=== PATIENT | female | born 1980 | race Caucasian/White ===

== ENCOUNTER 2020-07-23 12:53 | Emergency (ER) | payer MEDICAID, SELFPAY ==
[2020-07-23] VITALS (8 sets, daily range): BP systolic 96–127; BP diastolic 64–90; PULSE 59–86; RESP 14–16; TEMP 36.7; O2SAT 96–100; BMI 35.4
--- NOTE | 2020-07-23 13:25 | CT_ITS ---
STUDY: CT BRAIN WITHOUT CONTRAST REASON FOR EXAM: Female, 40 years old. ACUTE PSYCHOSIS, + ETOH, HX-HLD RADIATION DOSAGE (If Supplied By Facility): CTDIvol = ( 44.99 ) mGy, DLP = ( 796.11 ) mGycm TECHNIQUE: Transaxial CT imaging of the brain was performed without administration of intravenous contrast material. Individualized dose optimization techniques were used for this CT. COMPARISON: No relevant priors. FINDINGS: Normal soft tissue structures. Normal calvarium. Normal size ventricles and extra-axial spaces for the patient''s age. Normal white matter tracts of the cerebral hemispheres. Normal basal ganglia and thalami. Normal brainstem. Normal cerebellum. There is no intracranial hemorrhage. There are no findings of an acute ischemic infarction. Normal visualized paranasal sinuses. CT/Brain/Head without Contrast IMPRESSION: Normal unenhanced CT scan of the brain. Electronically Signed: Panchito Rush, at 14:57 EDT , Service support ,
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
[2020-07-23 13:48] LABS: Absolute Lymphocyte Count 3.13 X10^3/uL (0.83-4.51); Absolute Neutrophil Count 5.8 X10^3/uL (2.0-7.7); Basophil# 0.02 X10^3/uL; Basophil% 0.2 % (0-1); Eosinophil# 0.01 X10^3/uL; Eosinophils% 0.1 % (0-5); Hematocrit 40.4 % (37-47); Hemoglobin 13.9 g/dL (12.0-15.0); Lymphocyte # 3.13 X10^3/ul (4.0); Lymphocyte % 32.8 % (19-41); Mean Corp Hgb Conc 34.4 g/dL (32-36); Mean Corpuscular Volume 87.1 fL (81-99); Mean Platelet Vol. 9.3 fl (6.2-12.0); Monocyte# 0.58 X10^3/uL; Monocyte% 6.1 % (0-10); NRBC Flagged by Analyzer 0 % (0-5); Neutrophil # 5.75 X10^3/uL (2.7-7.7); Neutrophil % 60.4 % (47-70); Platelet Count 382 K/mm3 (150-450); RBC Distribution Width CV 12.2 % (11.6-14.6); RBC Distribution Width SD 38.9 fl (35.1-43.9); Red Blood Count 4.64 M/mm3 (4.2-5.4); White Blood Count 9.5 K/mm3 (4.4-11.0)
[2020-07-23 13:59] LABS: Internal QC Validated? YES +Cl - CLEAR BKGD; Pregnancy, Serum, hCG Quali. NEGATIVE Negative
[2020-07-23 14:06] LABS: Anion Gap 12 (5-15); BUN 9 mg/dL (7-18); BUN/Creat Ratio 9.5 RATIO (10-20); Calcium,Total 9.1 mg/dL (8.5-10.1); Chloride 103 mmol/L (98-107); Creatinine, Serum 0.95 mg/dL (0.55-1.02); EST Glomerular Filtration Rate 70 mL/min (>60); Est Glom Filt Rate - Afr Amer 85 mL/min (>60); Estimated Creatinine Clearance 75.17 ml/min; Glucose 79 mg/dL (74-106); Potassium 2.9 mmol/L (3.5-5.1); Sodium Level 140 mmol/L (136-145)
[2020-07-23 14:10] LABS: Alcohol, Blood (Medical)-Serum < 3.0 mg/dL
[2020-07-23 14:29] LABS: Color, Urine Yellow (Yellow); Glucose, Dipstick Normal (Normal); Leukocyte Esterase-Dipstick 100 /ul (Negative); Nitrite-Dipstick Negative (Negative); Occult Blood-Urine 25 /ul (Negative); Protein-Dipstick 30 mg/dl (Negative); Specific Gravity, Urine 1.025 (1.002-1.030); Urine Clarity Cloudy (Clear); Urine Urobilinogen 1 mg/dl (Normal)
[2020-07-23 14:32] LABS: Ketone-Dipstick 150 mg/dl (Negative); Urine Bilirubin Dipstick 1 mg/dL (Negative)
[2020-07-23 14:35] LABS: Bacteria 2+ /hpf (None Seen); Mucous, Urine 2+ /hpf (<or=2+); Red Blood Cells-Urine 0-5 SEEN /hpf (0-5); Squamous Epithelial Cells - UA 10-25 SEEN /hpf (5-10); White Blood Cells 5-10 SEEN /hpf (0-5)
[2020-07-23 14:47] LABS: Amphetamine Urine VISTA POSITIVE (<1000 ng/mL); Barbiturate Urine VISTA NEGATIVE (< 200 ng/mL); Benzodiazepine Urine VISTA NEGATIVE (< 200 ng/mL); Cocaine Urine VISTA NEGATIVE (< 300 ng/mL); Ecstacy Urine VISTA POSITIVE (< 500 ng/mL); Methadone Urine VISTA NEGATIVE (< 300 ng/mL); PCP Urine VISTA NEGATIVE (< 25 ng/mL); THC Urine VISTA NEGATIVE (< 50 ng/mL); Vista UDS pH Range 5
[2020-07-23] MEDS: Nitrofurantoin Macrocrystals 100 MG Capsule PO (15:18)
--- NOTE | 2020-07-23 21:08 | ED.RN ---
PT INFORMED OF PLAN FOR PLACEMENT PER [facility]SELING [facility], ALSO DISCUSSED PINK SLIP STATUS. PT VOICED UNDERSTANDING, TEARFUL BUT REMAINS COOPERATIVE. PT STATES THEY'RE JUST TRYING TO MAKE ME LOOK CRAZY.
[2020-07-23] MEDS: LORazepam 1 MG Tablet PO (21:58)
[2020-07-23] MEDS: Potassium Chloride 10mEq/100mL 10 MEQ/100 ML IV.SOLN. 100 MEQ IV BOLUS ×2 (22:14→23:16)
[2020-07-23 22:48] LABS: Potassium 3.2 mmol/L (3.5-5.1)
[2020-07-24 01:32] VITALS: BP 95/76
[2020-07-24 02:12] VITALS: BP 99/64; PULSE 60; RESP 16; O2SAT 96
[2020-07-24 03:06] VITALS: RESP 14
== END 2020-07-24 03:27 ==
LOC: ED 13:29
PROVIDERS: Emergency Medicine; Emergency Provider Emergency Medicine; PCP Preventive Medicine Occupational Medicine
DX: F23 Brief psychotic disorder (principal); F10.129 Alcohol abuse with intoxication, unspecified; E87.6 Hypokalemia; F41.1 Generalized anxiety disorder; E78.5 Hyperlipidemia, unspecified; M54.5 Low back pain; G89.29 Other chronic pain; F17.200 Nicotine dependence, unspecified, uncomplicated; Z79.899 Other long term (current) drug therapy
CPT/HCPCS: 70450; 80048; 80307; 80320; 81001; 84132; 84703; 85025; 87086; 87088; 96365; 96366; 99285; J7030; A4216; G0480

== ENCOUNTER 2020-09-25 14:08 | Emergency (ER) | payer MEDICAID, SELFPAY ==
[2020-07-23 12:56] VITALS: BMI 35.4
[2020-09-25 14:09] VITALS: BP 153/111; PULSE 73; RESP 24; TEMP 36.1; O2SAT 100; BMI 32.8
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
--- NOTE | 2020-09-25 14:40 | EKG12_ITS ---
Test Reason : PALPS Blood Pressure : / mmHG Vent. Rate : 057 BPM Atrial Rate : 057 BPM P-R Int : 136 ms QRS Dur : 082 ms QT Int : 494 ms P-R-T Axes : 039 027 047 degrees QTc Int : 480 ms Sinus bradycardia Abnormal ECG Confirmed by SEBASTIÁN COOK MD ([id number]), city editor JOSEE EDWARDS ([id number]) on 09/28/2020 8:53:49 AM Referred By: BB Confirmed By:SEBASTIÁN COOK MD
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
[2020-09-25] MEDS: LORazepam 2 MG/ML Syringe 1 MG IV (15:04)
[2020-09-25] MEDS: Ketorolac 15 MG/ML Vial IV (15:04)
[2020-09-25 15:32] LABS: Alcohol, Blood (Medical)-Serum < 3.0 mg/dL
[2020-09-25 15:34] LABS: Internal QC Validated? YES +Cl - CLEAR BKGD; Pregnancy, Serum, hCG Quali. NEGATIVE Negative
[2020-09-25 15:36] LABS: ALB/GLOB Ratio 1.2 RATIO (0.9-2.4); AST(SGOT) 15 U/L (15-37); Absolute Lymphocyte Count 2.87 X10^3/uL (0.83-4.51); Absolute Neutrophil Count 5.4 X10^3/uL (2.0-7.7); Alanine Aminotransfer ALT/SGPT 36 U/L (13-56); Albumin, Serum 4.5 g/dL (3.2-5.0); Alkaline Phosphatase 80 U/L (45-117); Anion Gap 8 (5-15); BUN 11 mg/dL (7-18); BUN/Creat Ratio 13.5 RATIO (10-20); Basophil# 0.03 X10^3/uL; Basophil% 0.3 % (0-1); Calcium,Total 9.5 mg/dL (8.5-10.1); Chloride 106 mmol/L (98-107); Creatinine, Serum 0.81 mg/dL (0.55-1.02); EST Glomerular Filtration Rate 84 mL/min (>60); Eosinophil# 0.11 X10^3/uL; Eosinophils% 1.2 % (0-5); Est Glom Filt Rate - Afr Amer 101 mL/min (>60); Estimated Creatinine Clearance 88.16 ml/min; Globulin 3.9 g/dL (2.2-4.2); Glucose 90 mg/dL (74-106); Hematocrit 43.8 % (37-47); Lymphocyte # 2.87 X10^3/ul (4.0); Lymphocyte % 32.1 % (19-41); Mean Corp Hgb Conc 34.2 g/dL (32-36); Mean Corpuscular Hgb 30.2 pg (27.0-32.0); Mean Corpuscular Volume 88.3 fL (81-99); Mean Platelet Vol. 10.1 fl (6.2-12.0); Monocyte# 0.47 X10^3/uL; Monocyte% 5.3 % (0-10); NRBC Flagged by Analyzer 0 % (0-5); Neutrophil # 5.44 X10^3/uL (2.7-7.7); Neutrophil % 60.8 % (47-70); Platelet Count 408 K/mm3 (150-450); Potassium 3.1 mmol/L (3.5-5.1); Protein, Total 8.4 g/dL (6.4-8.2); RBC Distribution Width CV 12.3 % (11.6-14.6); RBC Distribution Width SD 39.8 fl (35.1-43.9); Red Blood Count 4.96 M/mm3 (4.2-5.4); Sodium Level 139 mmol/L (136-145)
[2020-09-25 15:41] LABS: Prothrombin Time (Protime)PT. 12.9 SECONDS (11.7-14.9)
[2020-09-25 16:08] VITALS: RESP 16
[2020-09-25 17:35] LABS: Amphetamine Urine VISTA POSITIVE (<1000 ng/mL); Barbiturate Urine VISTA NEGATIVE (< 200 ng/mL); Benzodiazepine Urine VISTA POSITIVE (< 200 ng/mL); Cocaine Urine VISTA NEGATIVE (< 300 ng/mL); Ecstacy Urine VISTA POSITIVE (< 500 ng/mL); Methadone Urine VISTA NEGATIVE (< 300 ng/mL); PCP Urine VISTA NEGATIVE (< 25 ng/mL); THC Urine VISTA NEGATIVE (< 50 ng/mL); Vista UDS pH Range 5
[2020-09-25 18:08] VITALS: BP 97/54; PULSE 78; RESP 16; O2SAT 100
== END 2020-09-25 18:09 | disposition home or self-care (01) ==
PROVIDERS: Emergency Provider Emergency Medicine; PCP Preventive Medicine Occupational Medicine
DX: F15.959 Other stimulant use, unspecified with stimulant-induced psychotic disorder, unspecified (principal); R06.4 Hyperventilation; M79.662 Pain in left lower leg; M62.831 Muscle spasm of calf; M54.2 Cervicalgia; E87.6 Hypokalemia; F17.200 Nicotine dependence, unspecified, uncomplicated; Z79.899 Other long term (current) drug therapy
CPT/HCPCS: 80053; 80307; 82077; 84703; 85025; 85610; 93005; 96374; 96375; 99285

== ENCOUNTER 2023-08-19 10:31 | Emergency (ER) | payer MEDICAID, SELFPAY ==
[2023-08-19 10:33] VITALS: BP 126/73; PULSE 92; TEMP 35.8; O2SAT 96; BMI 37.4
--- NOTE | 2023-08-19 10:41 | EKG12_ITS ---
Test Reason : Blood Pressure : / mmHG Vent. Rate : 069 BPM Atrial Rate : 069 BPM P-R Int : 170 ms QRS Dur : 090 ms QT Int : 448 ms P-R-T Axes : 053 050 059 degrees QTc Int : 480 ms Normal sinus rhythm Lateral infarct , age undetermined Abnormal ECG Confirmed by JOYCE ORTIZ, SEBASTIÁN ([id number]), development editor JOSEE EDWARDS ([id number]) on 08/21/2023 12:03:51 PM Referred By: Confirmed By:SEBASTIÁN COOK MD
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
[2023-08-19 11:20] LABS: Absolute Lymphocyte Count 1.98 X10^3/uL (0.83-4.51); Absolute Neutrophil Count 6.7 X10^3/uL (2.0-7.7); Basophil# 0.02 X10^3/uL; Basophil% 0.2 % (0-1); Eosinophil# 0.14 X10^3/uL; Eosinophils% 1.5 % (0-5); Hematocrit 38.6 % (37-47); Hemoglobin 12.4 g/dL (12.0-15.0); Lymphocyte # 1.98 X10^3/ul (0.83-4.51); Lymphocyte % 21.2 % (19-41); Mean Corp Hgb Conc 32.1 g/dL (32-36); Mean Corpuscular Hgb 28.4 pg (27.0-32.0); Mean Corpuscular Volume 88.5 fL (81-99); Mean Platelet Vol. 9.3 fl (6.2-12.0); Monocyte# 0.49 X10^3/uL; Monocyte% 5.2 % (0-10); NRBC Flagged by Analyzer 0 % (0-5); Neutrophil # 6.68 X10^3/uL (2.7-7.7); Neutrophil % 71.6 % (47-70); Platelet Count 352 K/mm3 (150-450); RBC Distribution Width CV 12.5 % (11.6-14.6); RBC Distribution Width SD 40.3 fl (35.1-43.9); Red Blood Count 4.36 M/mm3 (4.2-5.4); White Blood Count 9.3 K/mm3 (4.4-11.0)
[2023-08-19 11:29] LABS: Internal QC Validated? YES +Cl - CLEAR BKGD; Pregnancy, Serum, hCG Quali. NEGATIVE Negative
[2023-08-19 11:38] LABS: ALB/GLOB Ratio 1.1 RATIO (0.9-2.4); AST(SGOT) 26 U/L (15-37); Alanine Aminotransfer ALT/SGPT 36 U/L (13-56); Albumin, Serum 3.9 g/dL (3.2-5.0); Alcohol, Blood (Medical)-Serum < 3.0 mg/dL; Alkaline Phosphatase 72 U/L (45-117); Anion Gap 4 (5-15); BUN 14 mg/dL (7-18); BUN/Creat Ratio 16.8 RATIO (10-20); Calcium,Total 8.6 mg/dL (8.5-10.1); Chloride 110 mmol/L (98-107); Creatinine, Serum 0.83 mg/dL (0.55-1.02); EST Glomerular Filtration Rate 80 mL/min (>60); Est Glom Filt Rate - Afr Amer 97 mL/min (>60); Globulin 3.4 g/dL (2.2-4.2); Glucose 102 mg/dL (74-106); Potassium 3.2 mmol/L (3.5-5.1); Protein, Total 7.3 g/dL (6.4-8.2); Sodium Level 140 mmol/L (136-145)
[2023-08-19 13:14] LABS: Mucous, Urine 0 SEEN /hpf (<or=2+)
[2023-08-19 13:16] LABS: Color, Urine Yellow (Yellow); Glucose, Dipstick Normal (Normal); Ketone-Dipstick 50 mg/dl (Negative); Leukocyte Esterase-Dipstick 25 /ul (Negative); Nitrite-Dipstick Negative (Negative); Occult Blood-Urine 250 /ul (Negative); Protein-Dipstick 30 mg/dl (Negative); Urine Bilirubin Dipstick Negative (Negative); Urine Clarity Sl. Cloudy (Clear); Urine Urobilinogen 1 mg/dl (Normal)
[2023-08-19 13:29] LABS: Bacteria 1+ /hpf (None Seen); Red Blood Cells-Urine 10-25 SEEN /hpf (0-5); Squamous Epithelial Cells - UA 0-5 SEEN /hpf (5-10); White Blood Cells 0-5 SEEN /hpf (0-5)
[2023-08-19 14:04] LABS: Amphetamine Urine VISTA POSITIVE (<1000 ng/mL); Barbiturate Urine VISTA NEGATIVE (< 200 ng/mL); Benzodiazepine Urine VISTA POSITIVE (< 200 ng/mL); Cocaine Urine VISTA NEGATIVE (< 300 ng/mL); Ecstacy Urine VISTA POSITIVE (< 500 ng/mL); Methadone Urine VISTA NEGATIVE (< 300 ng/mL); PCP Urine VISTA NEGATIVE (< 25 ng/mL); THC Urine VISTA NEGATIVE (< 50 ng/mL)
[2023-08-19 14:07] LABS: Vista UDS pH Range 5
[2023-08-19] MEDS: Potassium Chloride Oral Tablet 20 MEQ 40 MEQ PO (14:13)
[2023-08-19 14:22] VITALS: BP 116/71; PULSE 72; RESP 16; O2SAT 99
--- NOTE | 2023-08-19 14:24 | NURSING ---
faxed chart to crisis
--- NOTE | 2023-08-19 14:42 | NURSING ---
PAGED CRISIS AGAIN
--- NOTE | 2023-08-19 14:48 | NURSING ---
BENNY FRANKS, FOR DR JONES
[2023-08-19 16:00] VITALS: BP 111/60; PULSE 51; RESP 16; O2SAT 100
[2023-08-19] MEDS: Ziprasidone IM 20 MG/ML VIAL IM (16:15)
[2023-08-19] MEDS: LORazepam 2 MG/ML Syringe IM (16:15)
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
[2023-08-19 18:00] VITALS: BP 96/60; PULSE 74; RESP 16; O2SAT 100
[2023-08-19 20:00] VITALS: PULSE 66; RESP 16; O2SAT 98
[2023-08-19 22:00] VITALS: PULSE 70; RESP 16; O2SAT 98
[2023-08-20] VITALS (8 sets, daily range): BP systolic 92–106; BP diastolic 55–75; PULSE 59–75; RESP 16–18; O2SAT 98–99
--- NOTE | 2023-08-20 11:17 | NURSING ---
CALLED CRISIS. RN TALKED TO ARON
--- NOTE | 2023-08-20 13:29 | NURSING ---
LISETTE, CRISIS, HERE
--- NOTE | 2023-08-20 18:01 | NURSING ---
[facility] THEM [phone]
--- NOTE | 2023-08-20 18:17 | NURSING ---
[facility] ROOM [id number]URSE [address]UR[address] [phone] DR GEE
--- NOTE | 2023-08-20 18:28 | NURSING ---
CALLED SQUAD, ANURAG IS WITH IN THE HOUR
== END 2023-08-20 19:23 ==
PROVIDERS: Emergency Provider Emergency Medicine; PCP Preventive Medicine Occupational Medicine; Visit Provider Emergency Medicine
DX: F23 Brief psychotic disorder (principal); F19.10 Other psychoactive substance abuse, uncomplicated; F17.210 Nicotine dependence, cigarettes, uncomplicated; Z79.899 Other long term (current) drug therapy
CPT/HCPCS: 80053; 80307; 81001; 82077; 84703; 85025; 87811; 93005; 96372; 99285; J3486

== ENCOUNTER 2024-11-23 10:09 | Outpatient (REF) | payer SELFPAY ==
[2024-11-23 10:09] VITALS: BP 105/82; PULSE 68; RESP 14; TEMP 36.7; O2SAT 100; BMI 36.8
--- NOTE | 2024-11-23 10:38 | US_ITS ---
PROCEDURE: ABDOMEN LIMITED REASON FOR EXAM: Right upper quadrant pain COMPARISON: None FINDINGS: Study is limited secondary to bowel gas. Liver: Normal echotexture and measures 18.4 cm Gallbladder: Multiple gallstones with the largest measuring 1.1 x 1.1 x 0.6 cm. No sonographic Mcnamara's sign. No pericholecystic fluid or wall thickening. Common bile duct: Normal measuring 3 mm. Pancreas: Visualized portions are unremarkable. The distal body and tail are obscured by bowel gas. Right kidney measures 9.6 x 4.8 x 4.8 cm. No right upper quadrant ascites. US/Abdomen Limited IMPRESSION: 1. Hepatomegaly 2. Cholelithiasis with no sonographic evidence of acute cholecystitis Reading Location: [facility]
--- NOTE | 2024-11-23 10:39 | EKG12_ITS ---
Test Reason : Blood Pressure : */* mmHG Vent. Rate : 56 BPM Atrial Rate : 56 BPM P-R Int : 126 ms QRS Dur : 86 ms QT Int : 450 ms P-R-T Axes : 54 59 108 degrees QTcB Int : 434 ms Sinus bradycardia Possible Lateral infarct (cited on or before 30-Dec-2010) ST & T wave abnormality, consider anterior ischemia Abnormal ECG Confirmed by Marshall Hough ([id number]), manager editorial DAVIDA NERI ([id number]) on 11/25/2024 7:04:21 AM Referred By: Confirmed By: Marshall Hough
--- NOTE | 2024-11-23 10:47 | EDS_ITS ---
HPI HPI - GI History of Present Illness Chief Complaint: Abd Pain Informant: patient Narrative Narrative: Patient is a 44-year-old female with history of anxiety, back pain and reported "gallbladder sludge" presenting from long term for sudden onset of right upper quadrant abdominal pain. She states it started about 2030 minutes after having breakfast as (around 7 AM). She states that she had PBJ and cereal for breakfast. She then developed sharp/stabbing right upper quadrant epigastric pain that is then turned into burning as well. Has associated nausea. She has been having some reflux last few days and did have some Rolaids with no relief yesterday. States after this started she did have approximately 5 watery bowel movements in a row. Denies any blood in her stool but states she did not look too closely. Notes that her upper abdomen feels bloated. Was seen by the long term nurse and given ibuprofen at 9 AM with no relief. Was instructed to come to the emergency room for further evaluation. States he is never had pain like this before. Has a history of as far as abdominal surgeries. No other complaints or concerns at this time. Notes that she is currently on her menstrual cycle and is not concern for . States she did have the flu recently as well. [facility] Medical History Gallbladder calculus with acute cholecystitis Home Medications Medication Instructions Recorded Last Taken Type cyclobenzaprine 10 mg tablet 10 mg PO TID PRN PRN Spas ms 04/10/17 Unknown History ibuprofen 200 mg tablet 200 mg PO Q8H PRN PRN Pain 0 04/10/17 Unknown History lorazepam 1 mg tablet 1 mg PO TID PRN PRN Anxiety 07/23/20 Unknown History famotidine 40 mg tablet (Pepcid) 40 mg PO BID #14 tabs 11/23/24 Unknown Rx nitrofurantoin 100 mg PO Q12H 3 days #6 cap s 11/23/24 Unknown Rx monohydrate/macrocrystals 100 mg capsule (Macrobid) Allergy/AdvReac Type Severity Reaction Status Date / Time buspirone (From BuSpar) Allergy Unknown Verified 11/23/24 10:10 cephalexin monohydrate (From Allergy Shortness Verified 11/23/24 10:10 Keflex) of breath citalopram Allergy Hives Verified 11/23/24 10:10 hydroxyzine AdvReac TIRED Verified 11/23/24 10:10 Surgical History Previous section Social History Smoking Status: Current every day smoker tobacco type: cigarettes substance use type: marijuana ROS ROS ED Constitutional Constitutional ED: Denies chills or fever(s) Cardiovascular Cardiovascular: Denies chest pain Respiratory/Chest Respiratory/Chest: Denies cough or dyspnea Gastrointestinal Gastrointestinal: Reports abdominal pain, diarrhea, nausea and vomiting Genitourinary Genitourinary ED: Denies dysuria or hematuria Musculoskeletal Musculoskeletal: Denies arthralgias or myalgias Integumentary Denies rash Neurologic Neurologic: Denies paresthesias or weakness Hematologic/Lymphatic Hematologic/Lymphatic: Denies easy bleeding or easy bruising EXAM Physical Exam Const Vital Signs: 11/23/24 10:09 11/23/24 12:41 11/23/24 14:00 Temperature 98.1 F 97 F L 97.2 F L Temperature Source Temporal Oral Temporal Pulse Rate 68 78 72 Respiratory Rate 14 18 18 Blood Pressure 105/82 H 120/80 100/58 L Blood Pressure Mean 89 93 72 Pulse Ox 100 98 96 Oxygen Delivery Method Room Air Room Air Room Air 11/23/24 15:28 Temperature 97.8 F Temperature Source Temporal Pulse Rate 87 Respiratory Rate 18 Blood Pressure 113/71 Blood Pressure Mean 85 Pulse Ox 99 Oxygen Delivery Method Room Air Positive well nourished and well developed General Appearance ED: well developed and NAD HEENT Reports TM's clear and moist mucous membranes normocephalic Tympanic Membrane ED: Yes TM's clear Eyes PERRL General Eye ED: Negative for scleral icterus Neck supple Resp normal respiratory effort and clear to auscultation bilaterally Cardio regular rate and regular rhythm GI Inspection: Negative for abdominal distention Auscultation: normoactive bowel sounds Palpation: soft and tender epigastric, RUQ and Mcnamara's sign; Negative for guarding or rigid Back/Spine no CVA tenderness Extremity full ROM General Extremety ED: Negative for edema General Extremity: Negative for edema Neuro Sensorium / Orientation: alert Motor Exam: Negative for general weakness Psych mental status grossly normal and thought process normal Skin no wounds General Skin Exam: Negative for jaundice MDM MDM MDM Narrative Medical decision making narrative: Patient however sudden onset of right upper quadrant abdominal pain that started today. Vital signs normal emergency room. Differential includes cholecystitis, biliary colic, choledocholithiasis, ascending cholangitis, pancreatitis, peptic ulcer disease/gastritis/duodenitis and renal colic. I do not think this is referred cardiac pain but out of abundance of caution will obtain a twelve-lead EKG for screening. Patient given 1 dose of fentanyl, IV Pepcid and Zofran in the emergency room. Will reevaluate for symptoms. Patient has proven of symptoms. On repeat evaluation she is feeling much better. She is of a mild leukocytosis of 13.5. CMP shows a mild elevation of her AST and ALT (116/75) which is nonspecific. Lipase is normal. No significant electrolyte abnormalities with normal kidney function. Urinalysis does show 2+ bacteria and patient is been having some urinary frequency but denies any dysuria or hematuria. Urine is negative. Right upper quadrant ultrasound shows hepatomegaly and cholelithiasis with no evidence of acute cholecystitis. She does not have any pericholecystic fluid, gallbladder wall thickening or dilation of her common bile duct. Patient was also given Pepcid in the emergency room. Will put her on a course of this as she does report some recent indigestion. On repeat abdominal exam she no longer has a significant abdominal tenderness and is much improved. I do question a patient may be had some biliary colic or passed a gallstone. Given that her symptoms have significantly improved while in the emergency room and she does not have sonographic findings consistent with acute cholecystitis I do not think she requires an emergent surgical consult at this time. Will p.o. challenge if she tolerates this without significant pain will be discharged back to long term custody. Patient is given outpatient follow-up information for general surgery. Will be placed on short course of Macrobid for possible UTI given urinalysis findings and that she is symptomatic. Is given first dose in the emergency room. Given return precautions. Discharged in stable and improved condition. Lab Data Attestation: I reviewed the patient's lab results. Labs: Laboratory Results - last 24 hr 11/23/24 11/23/24 10:50 12:40 WBC 13.5 H RBC 4.60 Hgb 13.5 Hct 40.0 MCV 87.0 MCH 29.3 MCHC 33.8 RDW Std Deviation 39.9 RDW Coeff of Sandra 12.6 Plt Count 352 MPV 9.6 Immature Gran % (Auto) 0.800 Neut % (Auto) 83.9 H Lymph % (Auto) 10.4 L [place] % (Auto) 4.2 Eos % (Auto) 0.4 Baso % (Auto) 0.3 Absolute Neuts (auto) 11.3 H Absolute Lymphs (auto) 1.40 Nucleated RBC % 0 Sodium 140 Potassium 3.9 Chloride Direct 104 Carbon Dioxide 24.8 Anion Gap 11 BUN 9 Creatinine 0.73 Estim Creat Clear Calc 122.00 Est GFR (MDRD) Non-Af 105 BUN/Creatinine Ratio 12.6 Glucose 116 H Calcium 8.8 Total Bilirubin 0.31 Direct Bilirubin 0.21 AST 116 H ALT 75 H Alkaline Phosphatase 79 Total Protein 6.8 Albumin 4.0 Globulin 2.8 Lipase 20 Urine Color Yellow Urine Clarity Sl. Cloudy Urine pH 8.0 Ur Specific [place] 1.015 Urine Protein Negative Urine Glucose (UA) Normal Urine Ketones Negative Urine Occult Blood 250 H Urine Nitrite Negative Urine Bilirubin Negative Urine Urobilinogen Normal Ur Leukocyte Esterase 100 H Urine RBC 5-10 SEEN Urine WBC 5-10 SEEN Ur Squamous Epith Cells 0-5 SEEN Urine Bacteria 2+ Urine Mucus 0 SEEN Urine Test Negative Radiography Diagnostic Testing: Clinical Impression(s) from Imaging Studies Abdomen Ultrasound 11/23/24 10:38 IMPRESSION: 1. Hepatomegaly 2. Cholelithiasis with no sonographic evidence of acute cholecystitis Reading Location: [facility] Rhythm Strip Rhythm Strip: Sinus Rhythm Rate: 56 Ectopy: None EKG Initial EKG: Attestation: I personally reviewed and interpreted this EKG as follows: Interpretation: Sinus Bradycardia Comments: Sinus bradycardia rate of 56 bpm Normal axis Normal intervals Normal ST segments T wave inversions in V1 through V3, suspect this is lead placement. No reciprocal changes present Discharge Plan Admission Primary Reason for Your Visit: abd pain Attending Provider: Lilia Leon Primary Care Provider: Lebron Torres Instructions Patient Instructions: ED Gallstones with Biliary Colic Additional Instructions / Restrictions: Your workup today showed gallstones but does show findings consistent with acute cholecystitis (acute infection of the gallbladder). Please follow-up with general surgery as you might ultimately need your gallbladder removed. I suspect you might have had a spasm of your gallbladder or passed a gallstone today which is what caused your symptoms. You also have possible findings of an early urinary tract infection and placed on antibiotics for this. Take ibuprofen as needed for pain. Avoid fatty or greasy food. Finally, you have also been placed on an antacid for your stomach given your reported recent indigestion. Discharge Orders/Prescriptions Prescriptions: New nitrofurantoin monohyd/m-cryst [Macrobid] 100 mg capsule 100 mg PO Q12H 3 Days Qty: 6 0RF Rx Instructions: must administer with a meal/food famotidine [Pepcid] 40 mg tablet 40 mg PO BID Qty: 14 0RF No Action cyclobenzaprine 10 MG tablet 10 mg PO TID PRN PRN (Reason: Spasms) ibuprofen 200 MG tablet 200 mg PO Q8H PRN PRN (Reason: Pain) lorazepam 1 MG tablet 1 mg PO TID PRN PRN (Reason: Anxiety) Referrals / Follow Up: Tank Bailon MD [Med Staff - Active Staff] - Lebron Torres DO [Primary Care Provider] - Disposition Disposition (needs filled in before D/C Order can be placed): Home, Self Care
[2024-11-23] MEDS: Ondansetron 4 MG/2 ML Vial IV (10:51)
[2024-11-23] MEDS: fentaNYL 100 MCG/2 ML Ampul 50 MCG IV (10:51)
[2024-11-23 10:57] LABS: Absolute Neutrophil Count 11.3 X10^3/uL (2.0-7.7); Basophil# 0.04 X10^3/uL; Basophil% 0.3 % (0-1); Eosinophil# 0.05 X10^3/uL; Eosinophils% 0.4 % (0-5); Hemoglobin 13.5 g/dL (12.0-15.0); Lymphocyte % 10.4 % (19-41); Mean Corp Hgb Conc 33.8 g/dL (32-36); Mean Corpuscular Hgb 29.3 pg (27.0-32.0); Mean Platelet Vol. 9.6 fl (6.2-12.0); Monocyte# 0.56 X10^3/uL; Monocyte% 4.2 % (0-10); NRBC Flagged by Analyzer 0 % (0-5); Neutrophil # 11.31 X10^3/uL (2.7-7.7); Neutrophil % 83.9 % (47-70); Platelet Count 352 K/mm3 (150-450); RBC Distribution Width CV 12.6 % (11.6-14.6); RBC Distribution Width SD 39.9 fl (35.1-43.9); White Blood Count 13.5 K/mm3 (4.4-11.0)
[2024-11-23] MEDS: Famotidine 200 MG/20 ML MDV 20 MG in 0.9% Normal Saline (Pres. free 8 ML 300 MG IV (11:14)
[2024-11-23 11:28] LABS: AST(SGOT) 116 U/L (<=31); Alanine Aminotransfer ALT/SGPT 75 U/L (<=34); Alkaline Phosphatase 79 U/L (35-104); Anion Gap 11 (5-15); BUN 9 mg/dL (4-19); BUN/Creat Ratio 12.6 RATIO (10-20); Bilirubin, Direct 0.21 mg/dL (0.00-0.30); Calcium 8.8 mg/dL (7.6-11.0); Carbon Dioxide 24.8 mmol/L (22.0-29.0); Chloride 104 mmol/L (96-108); Creatinine, Serum 0.73 mg/dL (0.70-1.20); EST Glomerular Filtration Rate 105 (>60); Globulin 2.8 g/dL (2.2-4.2); Glucose 116 mg/dL (70-99); Lipase 20 U/L (13-75); Potassium 3.9 mmol/L (3.3-5.1); Protein, Total 6.8 g/dL (5.9-8.4); Sodium Level 140 mmol/L (133-145); Total Bilirubin 0.31 mg/dL (0.00-1.30)
[2024-11-23 12:41] VITALS: BP 120/80; PULSE 78; RESP 18; TEMP 36.1; O2SAT 98
[2024-11-23] MEDS: Ketorolac 15 MG/ML Vial IV (12:41)
[2024-11-23 12:53] LABS: Mucous, Urine 0 SEEN /hpf (<or=2+)
[2024-11-23 12:55] LABS: Color, Urine Yellow (Yellow); Glucose, Dipstick Normal (Normal); Ketone-Dipstick Negative (Negative); Leukocyte Esterase-Dipstick 100 /ul (Negative); Nitrite-Dipstick Negative (Negative); Occult Blood-Urine 250 /ul (Negative); Protein-Dipstick Negative (Negative); Specific Gravity, Urine 1.015 (1.002-1.030); Urine Bilirubin Dipstick Negative (Negative); Urine Clarity Sl. Cloudy (Clear); Urine Urobilinogen Normal (Normal)
[2024-11-23 13:01] LABS: Bacteria 2+ /hpf (None Seen); Internal QC Validated? YES +Cl - CLEAR BKGD; Pregnancy, Urine Negative Negative; Red Blood Cells-Urine 5-10 SEEN /hpf (0-5); Squamous Epithelial Cells - UA 0-5 SEEN /hpf (5-10); White Blood Cells 5-10 SEEN /hpf (0-5)
[2024-11-23 14:00] VITALS: BP 100/58; PULSE 72; RESP 18; TEMP 36.2; O2SAT 96
[2024-11-23 15:28] VITALS: BP 113/71; PULSE 87; RESP 18; TEMP 36.6; O2SAT 99
[2024-11-23] MEDS: Nitrofurantoin Macrocrystals 100 MG Capsule PO (15:36)
== END 2024-11-23 15:47 | disposition home or self-care (01) ==
LOC: ED 10:09
PROVIDERS: PCP Preventive Medicine Occupational Medicine; Visit Provider Emergency Medicine
DX: K80.20 Calculus of gallbladder without cholecystitis without obstruction (principal); R35.0 Frequency of micturition; R16.0 Hepatomegaly, not elsewhere classified; F41.9 Anxiety disorder, unspecified; F17.210 Nicotine dependence, cigarettes, uncomplicated
CPT/HCPCS: 76705; 80048; 80076; 81001; 81025; 83690; 85025; 87077; 87086; 87088; 87186; 93005; A4216; J2405